=== PATIENT | female | born 1985 | race African-American/Black ===

== ENCOUNTER 2018-10-05 12:04 | Emergency (ER) | payer SELFPAY ==
--- NOTE | 2018-10-05 13:34 | EDPHYS ---
Physician Documentation [facility] Name: Tamie Lyles Age: 33 yrs Sex: Female : 1985 Arrival Date: 10/05/2018 Time: 12:09 Bed 24 Private MD: None, None ED Physician Al Roque HPI: 10/05 13:31 This 33 yrs old Black Female presents to ER via Ambulatory with complaints of Headache, jr8 Toothache. 13:31 Patient stated that she thinks she has a toothache that is now causing radiated pain to jr8 head. Denies fevers, trauma, or fracture to teeth. Denies any other symptoms . 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 - Social history:: Smoking status: Patient uses tobacco products, smokes one pack cigarettes per day. - Ebola Screening: : Patient negative for fever greater than or equal to 101.5 degrees Fahrenheit, and additional compatible Ebola Virus Disease symptoms Patient denies exposure to infectious person Patient denies travel to an Ebola-affected area in the 21 days before illness onset No symptoms or risks identified at this time. ROS: 13:31 Eyes: Negative for injury, pain, redness, and discharge, Neck: Negative for injury, jr8 pain, and swelling, Cardiovascular: Negative for chest pain, palpitations, and edema, Respiratory: Negative for shortness of breath, cough, wheezing, and pleuritic chest pain, Abdomen/GI: Negative for abdominal pain, nausea, vomiting, diarrhea, and constipation, Back: Negative for injury and pain, MS/Extremity: Negative for injury and deformity, Skin: Negative for injury, rash, and discoloration. 13:31 ENT: Positive for dental pain, Negative for Gum pain nasal discharge, rhinorrhea, sinus congestion, sore throat, difficulty swallowing, difficulty handling secretions. 13:31 Neuro: Positive for headache, Negative for altered mental status, dizziness, gait disturbance, hearing loss, loss of consciousness, numbness, seizure activity, speech changes, syncope, near syncope, tingling, tinnitus, tremor, visual changes, weakness. Exam: 13:31 Eyes: Pupils equal round and reactive to light, extra-ocular motions intact. Lids and jr8 lashes normal. Conjunctiva and sclera are non-icteric and not injected. Cornea within normal limits. Periorbital areas with no swelling, redness, or edema. Neck: Trachea midline, no thyromegaly or masses palpated, and no cervical lymphadenopathy. Supple, full range of motion without nuchal rigidity, or vertebral point tenderness. No Meningismus. Cardiovascular: Regular rate and rhythm with a normal S1 and S2. No gallops, murmurs, or rubs. Normal PMI, no JVD. No pulse deficits. Respiratory: Lungs have equal breath sounds bilaterally, clear to auscultation and percussion. No rales, rhonchi or wheezes noted. No increased work of breathing, no retractions or nasal flaring. Abdomen/GI: Soft, non-tender, with normal bowel sounds. No distension or tympany. No guarding or rebound. No evidence of tenderness throughout. Back: No spinal tenderness. No costovertebral tenderness. Full range of motion. Skin: Warm, dry with normal turgor. Normal color with no rashes, no lesions, and no evidence of cellulitis. MS/ Extremity: Pulses equal, no cyanosis. Neurovascular intact. Full, normal range of motion. Neuro: Awake and alert, GCS 15, oriented to person, place, time, and situation. Cranial nerves II-XII grossly intact. Motor strength 5/5 in all extremities. Sensory grossly intact. Cerebellar exam normal. Normal gait. 13:31 ENT: External ear(s): are unremarkable, Ear canal(s): are normal, clear, TM's: are normal, no evidence of bulging, no dullness, no erythema, no fluid levels, no hemotympanum, no rupture, normal bony landmarks, normal mobility, Nose: External nose: no obvious acute abnormality, Nasal septum: deviates to the right, Nasal mucosa: moist, Turbinates: are normal, Mouth: Lips: moist, Oral mucosa: pink and intact, moist, Gums: pink, Tongue: is moist, Posterior pharynx: Airway: patent, Tonsils: are normal in appearance, Uvula: midline, non-edematous, no erythema, swelling, is not appreciated, Dental exam: pain, that is moderate, specifically in the upper right second molar (#2) and lower right second molar (#31). Vital Signs: 12:21 BP 140 / 95; Pulse 90; Resp 17; Temp 98.2; Pulse Ox 100% on R/A; Weight 106.59 kg; sg Height 5 ft. 5 in. (165.10 cm); Pain 8/10; 12:21 Body Mass Index 39.11 (106.59 kg, 165.10 cm) MDM: 13:03 Patient medically screened. jr8 13:31 Data reviewed: vital signs, nurses notes, and as a result, I will discharge patient. jr8 Data interpreted: Pulse oximetry: on room air is 100 %. Interpretation: normal. Counseling: I had a detailed discussion with the patient and/or guardian regarding: the historical points, exam findings, and any diagnostic results supporting the discharge/admit diagnosis, the need for outpatient follow up, a dentist, to return to the emergency department if symptoms worsen or persist or if there are any questions or concerns that arise at home. Administered Medications: No medications were administered Disposition: 15:40 Co-signature as Attending Physician, Al Roque MD I agree with the assessment and [facility] plan of care. Disposition: 10/05/18 13:34 Discharged to Home. Impression: Dental caries, Dentalgia. - Condition is Stable. - Discharge Instructions: Dental Abscess, Dental Caries, Adult, Dental Pain. - Prescriptions for Ultracet 37.5- 325 mg Oral Tablet - take 2 tablet by ORAL route every 6 hours - for up to 5 days; do not exceed 8 tablets per day.; 20 tablet. Amoxicillin 875 mg Oral Tablet - take 1 tablet by ORAL route every 12 hours for 10 days; 20 tablet. - Medication Reconciliation Form, Thank You Letter, Antibiotic Education, Prescription Opioid Use form. - Follow up: Private Physician; When: 2 - 3 days; Reason: Recheck today's complaints, Continuance of care, Re-evaluation by your physician. - Problem is new. - Symptoms have improved. Signatures: Wicho Parada, RN RN Al Florence MD MD cha Roszak, Josh, PA PA jr8 Amanda Pried RN RN tl3 Corrections: (The following items were deleted from the chart) 13:55 13:34 10/05/2018 13:34 Discharged to Home. Impression: Dental caries; Dentalgia. tl3 Condition is Stable. Forms are Medication Reconciliation Form, Thank You Letter, Antibiotic Education, Prescription Opioid Use. Follow up: Private Physician; When: 2 - 3 days; Reason: Recheck today's complaints, Continuance of care, Re-evaluation by your physician. Problem is new. Symptoms have improved. jr8
--- NOTE | 2018-10-05 13:34 | ER ---
Nurse's Notes [facility] Name: Tamie Lyles Age: 33 yrs Sex: Female : 1985 Arrival Date: 10/05/2018 Time: 12:09 Bed 24 Private MD: None, None Diagnosis: Dental caries;Dentalgia Presentation: 10/05 12:19 Presenting complaint: Patient states: Right sided headache and right upper jaw pain sg that started Tuesday morning, reports the pain began in her right upper jaw and is now radiating up into the right side of her head and face, denies, N/V/D/Fever, reports no hx of migraine or any other symptoms noted. Transition of care: patient was not received from another setting of care. Onset of symptoms was October 05, 2018. Risk Assessment: Do you want to hurt yourself or someone else? Patient reports no desire to harm self or others. Initial Sepsis Screen: Does the patient meet any 2 criteria? No. Patient's initial sepsis screen is negative. Does the patient have a suspected source of infection? No. Patient's initial sepsis screen is negative. Care prior to arrival: None. 12:19 Method Of Arrival: Ambulatory sg 12:19 Acuity: SEBASTIEN 4 sg Triage Assessment: 13:54 Headache History: The patient has had previous headaches and this one is similar to tl3 previous episodes. General: Appears uncomfortable. Pain: Also complains of no other associated symptoms. 13:54 Pain: Pain began 1 day ago. 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 - Social history:: Smoking status: Patient uses tobacco products, smokes one pack cigarettes per day. - Ebola Screening: : Patient negative for fever greater than or equal to 101.5 degrees Fahrenheit, and additional compatible Ebola Virus Disease symptoms Patient denies exposure to infectious person Patient denies travel to an Ebola-affected area in the 21 days before illness onset No symptoms or risks identified at this time. Screenin:27 Abuse screen: Denies threats or abuse. Nutritional screening: No deficits noted. tl3 Tuberculosis screening: No symptoms or risk factors identified. Fall Risk None identified. Assessment: 13:27 General: Appears distressed, uncomfortable, well groomed, well developed, well tl3 nourished, Behavior is calm, cooperative, appropriate for age. Pain: Complains of pain in right ear, right christianity and right jaw Pain currently is 10 out of 10 on a pain scale. Neuro: Level of Consciousness is awake, alert, obeys commands, Oriented to person, place, time, situation, Appropriate for age. Cardiovascular: Patient's skin is warm and dry. Respiratory: Airway is patent Respiratory effort is even, unlabored, Respiratory pattern is regular, symmetrical. GI: No signs and/or symptoms were reported involving the gastrointestinal system. : No signs and/or symptoms were reported regarding the genitourinary system. Derm: Skin is pink, warm \T\ dry. Skin temperature is warm. Musculoskeletal: No signs and/or symptoms reported regarding the musculoskeletal system. Vital Signs: 12:21 BP 140 / 95; Pulse 90; Resp 17; Temp 98.2; Pulse Ox 100% on R/A; Weight 106.59 kg; sg Height 5 ft. 5 in. (165.10 cm); Pain 8/10; 12:21 Body Mass Index 39.11 (106.59 kg, 165.10 cm) sg ED Course: 12:09 Patient arrived in ED. mr 12:10 None, None is Private Physician. mr 12:21 Triage completed. sg 12:21 Arm band placed on. sg 13:03 [facility] 13:03 Al Roque MD is Attending Physician. jr8 13:27 Amanda Pride, BHARTI is Primary Nurse. tl3 13:53 No provider procedures requiring assistance completed. Patient did not have IV access tl3 during this emergency room visit. 13:54 Patient has correct armband on for positive identification. tl3 Administered Medications: No medications were administered Outcome: 13:34 Discharge ordered by . jr8 13:53 Discharged to home ambulatory. tl3 13:53 Condition: stable 13:53 Discharge instructions given to patient, family, Instructed on discharge instructions, follow up and referral plans. medication usage, Demonstrated understanding of instructions, follow-up care, medications, Prescriptions given X 2. 13:55 Patient left the ED. tl3 Signatures: Wicho Parada RN RN sg Jackson, Lacie mr Tl Etienne PA PA jr8 Amanda Pride, RN RN tl3 Corrections: (The following items were deleted from the chart) 12:23 12:19 Presenting complaint: Patient states: Right sided headache and jaw pain that sg started Tuesday morning, denies, N/V/D/Fever, reports no hx of migraine or any other symptoms noted sg
== END 2018-10-05 13:55 | disposition home or self-care (01) ==
LOC: ER 12:04
DX: K02.9 Dental caries, unspecified (principal); F17.210 Nicotine dependence, cigarettes, uncomplicated; Z88.6 Allergy status to analgesic agent
CPT/HCPCS: 99282

== ENCOUNTER 2019-02-08 18:32 | Emergency (ER) | payer BC, SELFPAY ==
--- OUTSIDE RECORDS SUMMARY | 2019-02-08 18:34 | XMS REPORT ---
:1985 [facility] [place] [address] Care Team Providers Name Role Phone Unavailable Unavailable Unavailable Payers Payer Name Policy Type Policy Number Effective Date Expiration Date Problems This patient has no known problems. Allergies, Adverse Reactions, Alerts Allergy Allergy Status Severity Reaction(s) Onset Inactive Treating Comments Name Type Date Date Clinician NSAIDS DA Active DC 2018-03 (Non-Stero -27 idal 00:00:0 Anti-Infla 0 mma Medications This patient has no known medications.
--- NOTE | 2019-02-08 19:38 | EDPHYS ---
Physician Documentation [facility] Name: Tamie Lyles Age: 33 yrs Sex: Female : 1985 Arrival Date: 02/08/2019 Time: 18:36 Bed 26 Private MD: ED Physician Al Roque HPI: 02/08 19:32 This 33 yrs old Black Female presents to ER via Ambulatory with complaints of pm1 Toothache, Headache. 19:32 The patient presents with pain. The problem is located in the upper right third molar pm1 and upper right second molar. Onset: The symptoms/episode began/occurred 3 day(s) ago. Duration: The symptoms are continuous. Modifying factors: The symptoms are alleviated by nothing, the symptoms are aggravated by food. Associated signs and symptoms: Pertinent negatives: chills, dysphagia, fever, inability to eat, nausea, swelling, vomiting. Severity of symptoms: in the emergency department the symptoms are actually worse. The patient has experienced a previous episode, approximately 3 months ago, Saw dentist and told a small cavity that does not require intervention. 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 - Social history:: Smoking status: Patient/guardian denies using tobacco. - Ebola Screening: : No symptoms or risks identified at this time. ROS: 19:32 Constitutional: Negative for fever, chills, and weight loss. pm1 19:32 Neck: Negative for injury, pain, and swelling, Cardiovascular: Negative for chest pain, palpitations, and edema, Respiratory: Negative for shortness of breath, cough, wheezing, and pleuritic chest pain, Abdomen/GI: Negative for abdominal pain, nausea, vomiting, diarrhea, and constipation, Back: Negative for injury and pain, : Negative for injury, bleeding, discharge, and swelling, MS/Extremity: Negative for injury and deformity, Skin: Negative for injury, rash, and discoloration, Neuro: Negative for headache, weakness, numbness, tingling, and seizure. 19:32 ENT: Positive for dental pain, Negative for ear pain, difficulty swallowing, difficulty handling secretions, hoarseness. Exam: 19:32 Constitutional: This is a well developed, well nourished patient who is awake, alert, pm1 and in no acute distress. Head/Face: Normocephalic, atraumatic. Eyes: Pupils equal round and reactive to light, extra-ocular motions intact. Lids and lashes normal. Conjunctiva and sclera are non-icteric and not injected. Cornea within normal limits. Periorbital areas with no swelling, redness, or edema. Neck: Trachea midline, no thyromegaly or masses palpated, and no cervical lymphadenopathy. Supple, full range of motion without nuchal rigidity, or vertebral point tenderness. No Meningismus. 19:32 Chest/axilla: Normal chest wall appearance and motion. Nontender with no deformity. No lesions are appreciated. Cardiovascular: Regular rate and rhythm with a normal S1 and S2. No gallops, murmurs, or rubs. Normal PMI, no JVD. No pulse deficits. Respiratory: Lungs have equal breath sounds bilaterally, clear to auscultation and percussion. No rales, rhonchi or wheezes noted. No increased work of breathing, no retractions or nasal flaring. Abdomen/GI: Soft, non-tender, with normal bowel sounds. No distension or tympany. No guarding or rebound. No evidence of tenderness throughout. Back: No spinal tenderness. No costovertebral tenderness. Full range of motion. Skin: Warm, dry with normal turgor. Normal color with no rashes, no lesions, and no evidence of cellulitis. MS/ Extremity: Pulses equal, no cyanosis. Neurovascular intact. Full, normal range of motion. 19:32 ENT: External ear(s): are unremarkable, Ear canal(s): are normal, TM's: are normal, no evidence of bulging, no dullness, no erythema, no fluid levels, no hemotympanum, no rupture, Nose: is normal, Mouth: Lips: normal, Oral mucosa: normal, Gums: normal with healthy appearance, Posterior pharynx: Airway: normal, no evidence of obstruction, patent, Tonsils: are normal in appearance, no enlargement, no erythema, no exudate, no ulcerations, Dental exam: dental caries, that is mild, specifically in the upper right third molar (#1) and upper right second molar (#2). 19:32 Neuro: Orientation: is normal, Motor: is normal, moves all fours, Sensation: is normal, no obvious gross deficits, Gait: is steady, at a normal pace, without difficulty. Vital Signs: 18:38 BP 141 / 96; Pulse 65; Resp 18; Temp 98.3(TE); Pulse Ox 98% on R/A; Weight 69.85 kg; hj Height 5 ft. 6 in. (167.64 cm); Pain 10/10; 18:38 Body Mass Index 24.85 (69.85 kg, 167.64 cm) hj MDM: 19:19 Patient medically screened. pm1 19:35 Data reviewed: vital signs. Data interpreted: Pulse oximetry: on room air is 98 %. pm1 Interpretation: normal. Counseling: I had a detailed discussion with the patient and/or guardian regarding: the historical points, exam findings, and any diagnostic results supporting the discharge/admit diagnosis, the need for outpatient follow up, for definitive care, a dentist, to return to the emergency department if symptoms worsen or persist or if there are any questions or concerns that arise at home. Administered Medications: 19:38 Drug: Dante 10 mg-325 mg 1 tabs Route: PO; mg2 Disposition: 02/09 07:11 Co-signature as Attending Physician, Al Roque MD I agree with the assessment and [facility] plan of care. Disposition: 02/08/19 19:37 Discharged to Home. Impression: Dental caries. - Condition is Stable. - Discharge Instructions: Dental Pain. - Prescriptions for Amoxicillin 875 mg Oral Tablet - take 1 tablet by ORAL route every 12 hours for 10 days; 20 tablet. Tylenol- Codeine #3 300-30 mg Oral Tablet - take 2 tablets by ORAL route every 6 hours As needed; 20 tablet. - Medication Reconciliation Form, Thank You Letter, Antibiotic Education, Prescription Opioid Use form. - Follow up: Emergency Department; When: As needed; Reason: Worsening of condition. Follow up: Private Physician; When: 2 - 3 days; Reason: Recheck today's complaints, Continuance of care, Re-evaluation by your physician. - Problem is new. - Symptoms have improved. Signatures: Al Roque MD MD cha Joaquin, Henry RN RN Tim Holley, FRANC AIRCRAFT INSTRUMENT TESTER pm1 Ck Gray RN RN [facility] Eliana Osorio RN RN ca1 Corrections: (The following items were deleted from the chart) 02/08 19:47 19:37 02/08/2019 19:37 Discharged to Home. Impression: Dental caries. Condition is ca1 Stable. Forms are Medication Reconciliation Form, Thank You Letter, Antibiotic Education, Prescription Opioid Use. Follow up: Emergency Department; When: As needed; Reason: Worsening of condition. Follow up: Private Physician; When: 2 - 3 days; Reason: Recheck today's complaints, Continuance of care, Re-evaluation by your physician. Problem is new. Symptoms have improved. pm1
--- NOTE | 2019-02-08 19:38 | ER ---
Nurse's Notes [facility] Name: Tamie Lyles Age: 33 yrs Sex: Female : 1985 Arrival Date: 02/08/2019 Time: 18:36 Bed 26 Private MD: Diagnosis: Dental caries Presentation: 02/08 18:36 Presenting complaint: Patient states: i have a toothache for 3 days now, its making my hj head hurts;. Transition of care: patient was not received from another setting of care. Onset of symptoms was February 08, 2019. Risk Assessment: Do you want to hurt yourself or someone else? Patient reports no desire to harm self or others. Initial Sepsis Screen: Does the patient meet any 2 criteria? No. Patient's initial sepsis screen is negative. Does the patient have a suspected source of infection? No. Patient's initial sepsis screen is negative. Care prior to arrival: None. 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 - Social history:: Smoking status: Patient/guardian denies using tobacco. - Ebola Screening: : No symptoms or risks identified at this time. Screenin:15 Abuse screen: Denies threats or abuse. Denies injuries from another. Nutritional ca1 screening: No deficits noted. Tuberculosis screening: No symptoms or risk factors identified. Fall Risk None identified. Assessment: 19:15 General: Appears in no apparent distress. comfortable, Behavior is calm, cooperative, ca1 appropriate for age. Pain: Complains of pain in upper right second molar (#2) and upper right third molar (#1) and mouth and upper right second molar and upper right third molar Pain currently is 8 out of 10 on a pain scale. Neuro: Level of Consciousness is awake, alert, obeys commands, Oriented to person, place, time, situation. Cardiovascular: Heart tones S1 S2 present Capillary refill < 3 seconds Patient's skin is warm and dry. Respiratory: Airway is patent Respiratory effort is even, unlabored, Respiratory pattern is regular, symmetrical, Breath sounds are clear bilaterally. GI: No deficits noted. No signs and/or symptoms were reported involving the gastrointestinal system. : No deficits noted. No signs and/or symptoms were reported regarding the genitourinary system. EENT: Oral mucosa is moist. Dental caries noted in upper right second molar (#2) and upper right third molar (#1). Derm: Skin is intact, is healthy with good turgor, Skin is pink, warm \T\ dry. Musculoskeletal: Circulation, motion, and sensation intact. Capillary refill < 3 seconds. Vital Signs: 18:38 BP 141 / 96; Pulse 65; Resp 18; Temp 98.3(TE); Pulse Ox 98% on R/A; Weight 69.85 kg; hj Height 5 ft. 6 in. (167.64 cm); Pain 10/10; 18:38 Body Mass Index 24.85 (69.85 kg, 167.64 cm) ED Course: 18:36 Patient arrived in ED. mr 18:37 Triage completed. hj 18:39 Arm band placed on right wrist. hj 19:15 Patient has correct armband on for positive identification. Bed in low position. Call ca1 light in reach. Side rails up X 1. Pulse ox on. NIBP on. 19:18 Tim Holley NP is PHCP. pm1 19:18 Al Roque MD is Attending Physician. pm1 19:35 Ck Gray, BHARTI is Primary Nurse. mg2 19:46 No provider procedures requiring assistance completed. Patient did not have IV access ca1 during this emergency room visit. Administered Medications: 19:38 Drug: Arab 10 mg-325 mg 1 tabs Route: PO; mg2 Outcome: 19:37 Discharge ordered by . pm1 19:46 Discharged to home ambulatory. ca1 19:46 Condition: stable 19:46 Instructed on discharge instructions, follow up and referral plans. medication usage, Demonstrated understanding of instructions, follow-up care, medications, Prescriptions given X 2. 19:47 Patient left the ED. ca1 Signatures: Lacie PazKennedy, RN RN Tim Holley NP PRODUCTION BOW MAKER pm1 Ck Gray RN RN mg2 Eliana Osorio RN RN ca1 Corrections: (The following items were deleted from the chart) 18:39 18:38 Pulse 65bpm; Resp 18bpm; Pulse Ox 98% RA; Temp 98.3F Temporal; 69.85 kg; Height 5 hj ft. 6 in.; BMI: 24.8; Pain 10/10; hj
[2019-02-08] MEDS ORDERED: HYDROCODONE/APAP 10/325 TAB ONE (19:50)
== END 2019-02-08 19:47 | disposition home or self-care (01) ==
LOC: ER 18:32
DX: K02.9 Dental caries, unspecified (principal)
CPT/HCPCS: 99283